=== PATIENT | female | born 1960 | race Caucasian/White ===

== ENCOUNTER 2016-06-26 17:26 | Emergency (ER) | payer BC, OTHER ==
--- NOTE | 2016-06-26 17:44 | UCPHY ---
H & P Patient Type: New HPI/ROS: HPI CHIEF COMPLAINT: Sore throat, cough, ear pain HISTORY OF PRESENT ILLNESS: This patient very pleasant 55-year-old female denies any significant medical problems except GERD, presents to the urgent care with sore throat, ear congestion, ear pain, sinus congestion and anterior maxillary sinus pain. Also has and dry bronchitic sounding cough. States she has been sick for 2-3 days. She has not had a high fever, not vomiting or diarrhea denies productive cough, chest pain or shortness of breath. Past Medical History: GERD Past Surgical History: micro diskectomy, hip resurfacing hysterectomy Social History: denies use of drugs alcohol tobacco products Family History: noncontributory ROS REVIEW OF SYSTEMS: A comprehensive 10 point review of systems is otherwise negative aside from elements mentioned in the history of present illness. Exam Constitutional triage nursing summary reviewed, vital signs reviewed, awake/ alert. Eyes normal conjunctivae and sclera, EOMI, PERRLA. HENT right TM is erythematous and bulging, left TM normal, posterior pharynx mild erythema no significant swelling, uvula midline, no signs of exudate, no signs of [employer] RPA, moist mucus membranes, no epistaxis, neck supple/ no meningismus, no raccoon eyes. Respiratory clear to auscultation bilaterally, normal breath sounds, no respiratory distress, no wheezing. Cardiovascular rate normal, regular rhythm, no murmur, no edema, distal pulses normal. Gastrointestinal soft, non-tender, no rebound, no guarding, normal bowel sounds, no distension, no pulsatile mass. Genitourinary no CVA tenderness. Musculoskeletal no midline vertebral tenderness, full range of motion, no calf swelling, no tenderness of extremities, no meningismus, good pulses, neurovascularly intact. Skin pink, warm, & dry, no rash, skin atraumatic. Neurologic awake, alert and oriented x 3, AAOx3, moves all 4 extremities equally, motor intact, sensory intact, CN II-XII intact, normal cerebellar, normal vision, normal speech. Psychiatric normal mood/affect. Heme/Lymph/Immune no lymphadenopathy. Differential Diagnosis: includes but is not limited to in a particular order, upper respiratory tract infection, sinusitis, viral pharyngitis, strep pharyngitis, otitis media, viral syndrome Medical Decision Making: This patient appears well here nontoxic no acute distress, No hypoxia no fever. Clinically on exam patient has upper respiratory tract infection with a sinusitis. Patient be placed on azithromycin , guaifenesin, Decadron. Patient does understand return to the emergency room urgent care if there is any worsening symptoms questions or concerns. Source: Patient - Family History Significant Family History: No pertinent family hx Constitutional: Initial Vital Signs Temperature (C) 37.4 C 06/26/16 17:46 Heart Rate 91 06/26/16 17:46 Respiratory Rate 20 06/26/16 17:46 Blood Pressure 145/91 H 06/26/16 17:46 O2 Sat (%) 96 06/26/16 17:46 O2 Delivery Mode Room Air Allergies/Adverse Reactions: codeine Allergy (Verified 06/26/16 17:45) morphine Allergy (Verified 06/26/16 17:45) Home Medications: Medication Instructions Recorded AZITHROMYCIN [Z-PACK] 250 mg PO DAILY #6 tab 06/26/16 Dexamethasone [Decadron 4 MG (*)] 4 mg PO DAILY #4 tab 06/26/16 Guaifenesin [Guaifenesin ER] 600 mg PO BID #14 tab.er.12h 06/26/16 Ibuprofen [Motrin (*)] 800 mg PO Q6-8PRN #7 tab 06/26/16 Omeprazole 06/26/16 Medical Decision Making - Data Points Laboratory Results: 06/26/16 17:43 Group A Strep Screen Pending Departure - Departure Disposition: Home, Routine, Self-Care Clinical Impression: Upper respiratory tract infection Qualifiers: URI type: unspecified viral URI Qualified Code(s): J06.9 - Acute upper respiratory infection, unspecified; B97.89 - Other viral agents as the cause of diseases classified elsewhere Sinusitis Qualifiers: Sinusitis location: maxillary Chronicity: acute Recurrence: non-recurrent Qualified Code(s): J01.00 - Acute maxillary sinusitis, unspecified Condition: Good Instructions: Sinusitis (ED), Acute Bronchitis (ED), Viral Syndrome (ED), Cold Symptoms (ED), Upper Respiratory Infection (ED), Pharyngitis (ED) Additional Instructions: 1. drink lots of fluids. 2. Return to the urgent care or emergency room if develops any worsening symptoms questions or concerns. Referrals: CHANO YOUNGBLOOD [Primary Care Provider] - As per Instructions Prescriptions: AZITHROMYCIN [Z-PACK] 250 mg PO DAILY #6 tab Dexamethasone [Decadron 4 MG (*)] 4 mg PO DAILY #4 tab Guaifenesin [Guaifenesin ER] 600 mg PO BID #14 tab.er.12h Ibuprofen [Motrin (*)] 800 mg PO Q6-8PRN #7 tab - PQRS PQRS Measurement: n/a
[2016-06-26 17:48] VITALS: BP 145/91; PULSE 91; RESP 20; TEMP 99.3; O2SAT 96
== END 2016-06-26 18:17 | disposition home or self-care (01) ==
LOC: CED 17:26
DX: J02.9 Acute pharyngitis, unspecified (principal); R05 Cough; H92.09 Otalgia, unspecified ear; K21.9 Gastro-esophageal reflux disease without esophagitis
CPT/HCPCS: 87880-PO; 99204-PO